=== PATIENT | male | born 1960 | race Caucasian/White ===

== ENCOUNTER 2022-04-17 14:13 | Outpatient (CLI) | payer BC, SELFPAY ==
[2022-04-17 14:52] LABS: Albumin* 4.2 g/dL (3.3-5.0)
[2022-04-17 14:53] LABS: Chloride* 104 mmol/L (96-114); Potassium* 4.6 mmol/L (3.6-5.1); Sodium* 137 mmol/L (135-149)
[2022-04-17 14:55] LABS: Aspartate Amino Transferase* 40 U/L (12-35); Bilirubin Total* 0.7 mg/dL (0.1-1.5); Blood Urea Nitrogen* 16 mg/dL (7-30); Carbon Dioxide* 26 mmol/L (20-32); Cholesterol* 184 mg/dL (90-199); Creatinine* 1.2 mg/dL (0.5-1.5); Estimated Glomerular Filt Rate 68 ml/min; Glucose* 110 mg/dL (60-115)
[2022-04-17 14:56] LABS: Alanine Aminotransferase* 61 U/L (4-50); Alkaline Phosphatase* 68 U/L (40-150); Calcium* 8.6 mg/dL (8.4-10.6); HDL Cholesterol* 45 mg/dL (>=40); LDL Cholesterol Calculated 108 mg/dL (<100); Triglycerides* 153 mg/dL (40-149)
[2022-04-22 02:04] LABS: PSA Diagnostic* 0.87 ng/mL (0.10-4.00)
== END 2022-04-17 14:14 | disposition home or self-care (01) ==
PROVIDERS: PCP Family Medicine; Visit Provider Family Medicine
DX: Z00.00 Encounter for general adult medical examination without abnormal findings (principal); E78.5 Hyperlipidemia, unspecified; Z12.5 Encounter for screening for malignant neoplasm of prostate
CPT/HCPCS: 80053; 80061; 84153

== ENCOUNTER 2023-08-06 14:12 | Outpatient (REF) | payer BC, SELFPAY | END 2023-08-06 14:13 | disposition home or self-care (01) | LOC: NPINS 14:12 | PROVIDERS: PCP Family Medicine; Visit Provider Dermatology | DX: L40.0 Psoriasis vulgaris (principal) | CPT/HCPCS: 86480 ==

== ENCOUNTER 2023-08-27 08:18 | Outpatient (CLI) | payer BC, SELFPAY | END 2023-08-27 08:19 | disposition home or self-care (01) | LOC: NFLDREF 08-28 19:07 | PROVIDERS: PCP Family Medicine; Referring Provider Family Medicine; Visit Provider Family Medicine | DX: E78.5 Hyperlipidemia, unspecified (principal); Z12.5 Encounter for screening for malignant neoplasm of prostate; Z13.1 Encounter for screening for diabetes mellitus | CPT/HCPCS: 80053; 80061; G0103 ==

== ENCOUNTER 2024-08-05 23:22 | Outpatient (REF) | payer BC, SELFPAY ==
[2024-08-08 16:00] LABS: QuantiFERON Mitogen minus NIL 9.95 IU/mL; QuantiFERON NIL 0.05 IU/mL; Quantiferon Plus TB1 minus NIL 0.03 IU/mL (<=0.34); Quantiferon Plus TB2 minus NIL 0.01 IU/mL (<=0.34); Quantiferon TB Gold Plus Negative (Negative)
== END 2024-08-05 23:23 | disposition home or self-care (01) ==
LOC: LAB 23:22
PROVIDERS: PCP Family Medicine; Visit Provider Dermatology
DX: L40.0 Psoriasis vulgaris (principal); L30.9 Dermatitis, unspecified
CPT/HCPCS: 36415; 86480

== ENCOUNTER 2025-01-19 10:16 | Outpatient (CLI) | payer BC, SELFPAY | END 2025-01-19 10:17 | disposition home or self-care (01) | LOC: LKVREF 10:18 | PROVIDERS: PCP Family Medicine; Visit Provider Family Medicine | DX: E78.5 Hyperlipidemia, unspecified (principal); R73.03 Prediabetes; I49.9 Cardiac arrhythmia, unspecified; E66.9 Obesity, unspecified; R07.9 Chest pain, unspecified; R73.9 Hyperglycemia, unspecified; Z79.899 Other long term (current) drug therapy | CPT/HCPCS: 80053; 80061; 84443; 84484; G0103 ==

== ENCOUNTER 2025-05-12 19:35 | Outpatient (CLI) | payer BC, SELFPAY ==
--- NOTE | 2025-05-19 12:51 | W.PM.SLEEP ---
Sleep Study Details Details Interpreting Provider: Omar Date of Sleep Study: 05/12/25 Sleep Study Details: STUDY TYPE:? Home unattended ? BMI:? 36.2 ORDERING PROVIDER:? Omar INDICATION:? Concern for sleep apnea ? SLEEP SUMMARY:? 512 minutes monitored RESPIRATORY SUMMARY:? AHI 37.8 per CMS guideline, 43.4 per rule 1A Low oxygen 83 2.1% of study oxygen less than 90% Snoring 82.2% PERIODIC LIMB MOVEMENTS OF SLEEP:? Not recorded CARDIAC:? Range 35-89, mean 59.3 beats per minute IMPRESSION:? Severe obstructive sleep apnea Bradycardia noted during study RECOMMENDATION: For the sleep apnea treatment would be either AutoSet CPAP 4-17 or an in-lab study Further cardiac evaluation may be indicated.
--- NOTE | 2025-06-16 12:18 | W.PM.SLEEP ---
Sleep Study Details Details Interpreting Provider: Omar Date of Sleep Study: 05/12/25 Sleep Study Details: STUDY TYPE:? Home unattended ? BMI:? 36.2 ORDERING PROVIDER:? Hattie INDICATION:? Concern for sleep apnea ? SLEEP SUMMARY:? 512.4 minutes monitored RESPIRATORY SUMMARY:? AHI 43.4 per rule 1 a, 37.8 per CMS guideline Low oxygen 83 2.1% of study oxygen less than 90% Snoring 82.2% PERIODIC LIMB MOVEMENTS OF SLEEP:? Not recorded CARDIAC:? Range 35-89, mean 59.3 IMPRESSION:? Bradycardia was noted with a heart rate as low as 35 both during time in bed and during sleep. Study demonstrates severe obstructive sleep apnea RECOMMENDATION: Further cardiac evaluation may be indicated. For the sleep apnea either AutoSet CPAP or in-lab titration is recommended. Weight loss is recommended as well.
== END 2025-05-12 19:36 | disposition home or self-care (01) ==
PROVIDERS: PCP Family Medicine; Visit Provider Family Medicine
DX: G47.33 Obstructive sleep apnea (adult) (pediatric) (principal)
CPT/HCPCS: 95806

== ENCOUNTER 2025-07-17 09:00 | Outpatient (CLI) | payer BC, SELFPAY | END 2025-07-17 09:01 | disposition home or self-care (01) | LOC: NPINS 09:01 | PROVIDERS: PCP Family Medicine; Visit Provider Dermatology | DX: L40.0 Psoriasis vulgaris (principal) | CPT/HCPCS: 86480 ==

== ENCOUNTER 2025-07-21 08:50 | Outpatient (CLI) | payer BC, SELFPAY | END 2025-07-21 08:51 | disposition home or self-care (01) | LOC: NFLDREF 07-27 05:55 | PROVIDERS: PCP Family Medicine; Referring Provider Family Medicine; Visit Provider Family Medicine | DX: E78.5 Hyperlipidemia, unspecified (principal) | CPT/HCPCS: 80061; 80076 ==